=== PATIENT | female | born 1975 | race Caucasian/White ===

== ENCOUNTER 2017-08-20 13:32 | Emergency (ER) | payer MEDICARE ==
[~2017-08-20] VITALS: Ht 167.6 cm; Wt 91.6 kg
[2017-08-20 13:42] VITALS: BP 157/76
--- NOTE | 2017-08-20 13:48 | NUR ---
PATIENT AMB. TO BED #4
--- NOTE | 2017-08-20 13:55 | NUR ---
patient brought in by private vehicle for c/o right lower back pain x 3 days and abdominal pain. patient is alert and oriented x 4. respirations are even and unlabored. during assessment patient states back pain has subsided, however, while patient was laying down pain began again. no abnormalities noted to back upon inspection. patient denies any recent trauma or injury to area. patient denies any numbness or tingling, urinary or fecal incontinence. awaitng md evaluation.
--- NOTE | 2017-08-20 15:15 | NUR ---
Patient discharged with v/s stable. Written and verbal after care instructions given and explained. Patient alert, oriented and verbalized understanding of instructions. Ambulatory with steady gait. All questions addressed prior to discharge. ID band removed. Patient advised to follow up with PMD. Rx of Keflex given. Patient educated on indication of medication including possible reaction and side effects. Opportunity to ask questions provided and answered. Patient verbalizes understanding in her own words and in agreement.
[2017-08-20 15:39] VITALS: BP 128/72
== END 2017-08-20 15:15 | disposition home or self-care (01) ==
LOC: MED 13:32
DX: N39.0 Urinary tract infection, site not specified (principal); F12.10 Cannabis abuse, uncomplicated
CPT/HCPCS: 81002; 81025; 99283

== ENCOUNTER 2019-03-27 13:16 | Emergency (ER) | payer BC, MEDICARE ==
[~2019-03-27] VITALS: Ht 170.2 cm; Wt 98.4 kg
[2019-03-27 13:26] VITALS: BP 115/88
--- NOTE | 2019-03-27 14:26 | NUR ---
PATIENT AMBULATED TO BED 8
--- NOTE | 2019-03-27 14:34 | NUR ---
44/F PRESENTS TO ED WITH FAMILY/FRIEND, C/O 2MM LACERATION ON L 4TH DIGIT, X1.5 HRS S/P WIPING AROUND COUNTER. PT REPORTS POSSIBLY FEELING FOREIGN BODY/SHARD OF GLASS INSIDE. NO ACTIVE BLEEDING ON SITE, +CMS, TENDER TO TOUCH. PT AWAKE AND ALERT, SKIN NORMAL WARM AND DRY, RR EVEN AND UNLABORED. HX GERD; RX GERD MED
[2019-03-27 15:27] VITALS: BP 106/78
== END 2019-03-27 15:27 | disposition home or self-care (01) ==
LOC: MED 13:16
DX: S60.415A Abrasion of left ring finger, initial encounter (principal); J45.909 Unspecified asthma, uncomplicated; K21.9 Gastro-esophageal reflux disease without esophagitis; W22.8XXA Striking against or struck by other objects, initial encounter; Y93.E9 Activity, other interior property and clothing maintenance; Y92.098 Other place in other non-institutional residence as the place of occurrence of the external cause; Y99.8 Other external cause status
CPT/HCPCS: 73130; 90471; 90715; 99283

== ENCOUNTER 2019-06-19 15:13 | Emergency (ER) | payer BC ==
[~2019-06-19] VITALS: Ht 170.2 cm; Wt 99.8 kg
[2019-06-19 15:15] VITALS: BP 113/78
--- NOTE | 2019-06-19 15:15 | NUR ---
PT AMBULATED TO BED WITH STEADY GAIT.
--- NOTE | 2019-06-19 15:26 | NUR ---
44 YEAR OLD FEMALE COMPLAINS OF VISION FEELING "WEIRD" FOR THE PAST 2-3 DAYS. PATIENT STATES THAT HER VISION FEELS THOUGH IT IS DISTORTED, BUT ABLE TO READ AND SEE THINGS CLEARLY. BED IN LOWEST POSITION, LOCKED, BED RAIL UPX1. PMH - ASTHMA, GERD
--- NOTE | 2019-06-19 15:30 | NUR ---
Rad christopher in ED - 06/19/19 at 1617 by [facility] PATIENT REFUSING TO LEAVE, CLOTH OPENER HAND IAN NOTIFIED.
--- NOTE | 2019-06-19 16:13 | NUR ---
ERMD AT BEDSIDE
[2019-06-19] MEDS ORDERED: DEXAMETHASONE 4 MG/ML VIAL PO ONE (16:40)
[2019-06-19 17:14] VITALS: BP 113/78
--- NOTE | 2019-06-19 17:15 | NUR ---
Patient discharged with v/s stable. Written and verbal after care instructions given and explained. Patient alert, oriented and verbalized understanding of instructions. Ambulatory with steady gait. All questions addressed prior to discharge. ID band removed. Patient advised to follow up with PMD. Rx of LORATADINE and ALBUTEROL given. Patient educated on indication of medication including possible reaction and side effects. Opportunity to ask questions provided and answered.
== END 2019-06-19 17:15 | disposition home or self-care (01) ==
LOC: MED 15:13
DX: J32.8 Other chronic sinusitis (principal); B97.89 Other viral agents as the cause of diseases classified elsewhere; R09.81 Nasal congestion; J45.909 Unspecified asthma, uncomplicated; K21.9 Gastro-esophageal reflux disease without esophagitis; E78.5 Hyperlipidemia, unspecified; Z98.890 Other specified postprocedural states
CPT/HCPCS: 99283; J1100